=== PATIENT | female | born 1965 | race Caucasian/White ===

== ENCOUNTER 2023-10-26 11:28 | Outpatient (CLI) | payer OTHER, SELFPAY ==
--- NOTE | ~2023-10-26 | XR_ITS ---
SINGLE AP VIEW PELVIS Ordering provider: Belem Quinonez MD History: . Radiculopathy, lumbar region, HX L2-L3 DISK REPLACEMENT . Comparison: None. FINDINGS: BONES: No acute fracture or dislocation. HIP JOINT SPACES: Normal. SACROILIAC JOINT SPACES/LUMBAR SPINE: The sacroiliac joint spaces are normal. Mild degenerative cheema es of the visualized lower lumbar spine. PUBIC SYMPHYSIS: Normal. SOFT TISSUES: Normal. IMPRESSION: No acute osseous abnormality pelvis. Reviewed, dictated and finalized at location A.
--- NOTE | ~2023-10-26 | XR_ITS ---
3 VIEWS LUMBAR SPINE Ordering provider: Belem Quinonez MD History: . please have pt bend forward and backward . Comparison: None. FINDINGS: VERTEBRAL BODIES: No visible fracture or subluxation. Post laminectomy is noted at the level of L3-L4 . DISK SPACES: Narrowing of the disc L1-L2, L2-L3, L3-L4, L4-L5 and L5-S1. SOFT TISSUES: Atherosclerotic changes of the aorta. IMPRESSION: No acute osseous abnormality lumbar spine. Reviewed, dictated and finalized at location A.
== END 2023-10-26 11:29 | disposition home or self-care (01) ==
PROVIDERS: PCP Family Medicine; Visit Provider Neurological Surgery
DX: M54.16 Radiculopathy, lumbar region (principal)
CPT/HCPCS: 72110; 72190